=== PATIENT | male | born 1960 | race Caucasian/White ===

== ENCOUNTER 2018-07-24 11:13 | Emergency (ER) | payer OTHER ==
[2018-07-24 11:22] VITALS: BP 167/104
--- NOTE | 2018-07-24 11:52 | UC ---
Ear Complaint HPI - HPI Summary HPI Summary: CHIEF COMPLAINT and HPI: This is a healthy 58-year-old complains of bilateral ear congestion, right ear worse than the left. The patient states that he put Broxson in his right ear and that made it worse. Condition began yesterday. He denies any recent URI. His past medical history includes intermittent bronchitis, but is noncontributory to the present complaint. Is made of an elevated blood pressure of 167/104. The patient says he is on lisinopril but ran out in the last couple of days. Sometimes he has some tinnitus but he denies any neurologic complaints. VITAL SIGNS & SaO2 REVIEWED. Within normal limits unless noted here. 167/104 NURSES NOTE REVIEWED. Pt complains of bilateral clogged ears since 07/23/18. - History of Current Complaint Chief Complaint: UCEar Stated Complaint: ear problems Time Seen by Provider: 07/24/18 11:27 Pain Intensity: 0 - Allergies/Home Medications Allergies/Adverse Reactions: Allergies Allergy/AdvReac Type Severity Reaction Status Date / Time No Known Allergies Allergy Verified 07/24/18 11:19 PMH/Surg Hx/FS Hx/Imm Hx - Additional Past Medical History Additional PMH: PAST MEDICAL HISTORY- ANGINA, INCREASED CHOLESTEROL, HYPERTENSION, CVA, bronchitis CHRONIC and RECURRENT HEALTH PROBLEM LIST REVIEWED. Information relevant to present complaint: Intermittent cough visits VISIT HISTORY REVIEWED. MEDICATIONS & ALLERGIES REVIEWED. She does run out of his antihypertensive medication HYPERTENSION STATUS: Not on antihypertensive medication FAMILY HISTORY:cardiovascular disease Social history: works as a professor at [employer]. He lives with his family. He plays hockey. Nonsmoker. Previously Healthy: Yes - Surgical History Surgical History: Yes Surgery Procedure, Year, and Place: wisdom teeth surgically removed 1990 - Family History Known Family History: Positive: None - Social History Alcohol Use: Occasionally Substance Use Type: None Smoking Status (MU): Never Smoked Tobacco When Did the Patient Quit Smoking/Using Tobacco: 1989 - Immunization History Most Recent Influenza Vaccination: unknown Most Recent Tetanus Shot: 07/16/12 Most Recent Pneumonia Vaccination: never Review of Systems All Other Systems Reviewed And Are Negative: Yes Constitutional: Positive: Negative ENT: Positive: Other - clogged ears. Negative: Epistaxis, Sore Throat, Sinus Congestion, Sinus Pain/Tenderness Respiratory: Positive: Negative. Negative: Shortness Of Breath Cardiovascular: Positive: Negative. Negative: Palpitations Gastrointestinal: Positive: Negative. Negative: Abdominal Pain Is Patient Immunocompromised?: No Physical Exam - Summary Physical Exam Summary: Appearance: The patient is well-appearing, is in no pain or distress, and is well-nourished. Eyes: Conjunctiva are clear. Pupils are equal and reactive to light and accommodation. Extra ocular muscle movement is intact. ENT: The hearing is grossly normal, the pharynx is normal, and the TMs are normal. There is no muffled or hoarse voice. No stridor. The external auditory canal on the right is filled with cerumen. On the left side. He can just see the tympanic membrane, but there is a minimal amount of cerumen. Neck: The neck is supple and there is no lymphadenopathy. Respiratory: The chest is non-tender to palpation and without crepitus. The lungs are clear, there are normal breath sounds, and there is no respiratory distress. No wheezes, rales or rhonchi. Cardiovascular: Heart sounds reveal a regular rate and rhythm. There are no clicks, rubs or murmurs. There are no carotid bruits or thrills. Circulation is grossly intact. Abdomen: The abdomen is soft and nontender. There is no organomegaly. Bowel sounds are present and within normal limits. No point tenderness at McBurneys point. No CVA tenderness. Musculoskeletal: Strength is intact. The patient moves all extremities. Neurological: The patient is alert. Motor and sensory are examination grossly intact. Speech is normal. Psychological: The patient displays age appropriate behavior, and is conversant. GCS=15. Skin: Negative for rashes. Procedure by nurse: Both ears were irrigated. There were good results on the right. The left was less successful, but it was clear to the TM by repeat examination. Patient feels it's easier to hear. Vital Signs: Initial Vital Signs Temp 97.8 F 07/24/18 11:20 Pulse 75 07/24/18 11:20 Resp 20 07/24/18 11:20 BP 167/104 07/24/18 11:20 Pulse Ox 97 07/24/18 11:20 Ear Complaint Course/Dx - Course Course Of Treatment: MEDICAL DECISION MAKING and PLAN: Agent was healthy, complaining of one-day history of bilateral ear congestion, right worse than left. He has a interesting past medical history that includes TIA as well as hypertension. He ran out of blood pressure pills 2 days ago and his pressure is now 167/104. I will give him a prescription for lisinopril. His ears were irrigated with good results. The right ear was worse and is now clear. The patient is more comfortable. I can hear better. My diagnosis is cerumen impaction bilaterally and hypertension MEDICATIONS REVIEWED. HYPERTENSION STATUS REVIEWED WITH PATIENT IF blood pressure is above 120/80. Patient is being treated for hypertension, and will follow up with PMD within 4 weeks. - Differential Dx/Diagnosis Differential Diagnosis/HQI/PQRI: Cerumen Impaction, Otitis Externa, Otitis Media Provider Diagnosis: Cerumen impaction, Hypertension Discharge - Sign-Out/Discharge Documenting (check all that apply): Patient Departure All imaging exams completed and their final reports reviewed: No Studies - Discharge Plan Condition: Stable Disposition: HOME Prescriptions: Lisinopril TAB* [Prinivil TAB 10 MG*] 10 mg PO DAILY #60 tab MDD 10 mg Patient Education Materials: Cerumen Impaction (ED) Referrals: Jacoby Lentz MD [Primary Care Provider] - Additional Instructions: WE DISCUSSED: PLEASE SEEK CARE AT THE EMERGENCY DEPARTMENT IF SYMPTOMS WORSEN OR IF NEW SYMPTOMS DEVELOP. FOLLOW UP WITH YOUR PRIMARY CARE PHYSICIAN IF CONDITION CONTINUES BEYOND 3 DAYS WITHOUT IMPROVEMENT. YOUR DIAGNOSIS IS: WAX IN EARS; REMOVED; HYPERTENSION YOUR PRESCRIPTION RECOMMENDATION IS: LISINOPRIL OTHER INSTRUCTIONS: Hypertension Discharge Instructions: Your blood pressure reading today was 167/104, indicating HYPERTENSION. Follow- up with your primary care provider within 4 weeks for blood pressure check and appropriate recommendations and treatment, as needed. - Billing Disposition and Condition Condition: STABLE Disposition: Home
== END 2018-07-24 12:30 | disposition home or self-care (01) ==
LOC: UCEAST 11:13
DX: H61.23 Impacted cerumen, bilateral (principal); I10 Essential (primary) hypertension
CPT/HCPCS: 99203; G0463

== ENCOUNTER 2023-05-18 05:39 | Observation (INO) ==
[~2023-05-18 05:39] MED LIST: Naloxone 0.4 mg VIAL 0.4 mg/ml 1 ml VIAL IV PRN; Ondansetron 4 mg VIAL 2 MG/ML 2 ml VIAL IV PRN; fentaNYL 100 mcg/2 ml 50 MCG/ML VIAL IV PRN
[2023-05-18] MEDS ORDERED: Chlorhexidine MOUTHWASH 0.12% 15 ML UDC ONE (05:54)
[2023-05-18] MEDS ORDERED: ceFAZolin 2 GM PREMIX 2 GM/50 ML BAG ONE (06:17)
[2023-05-18] MEDS: Lactated Ringers 1000 ml BAG 1,000 ML IV SCH ×2 (06:30→12:47)
[2023-05-18] MEDS: Buffered Lidocaine 1% SYRIN 1 ml INTRADERM ONE (06:30)
[2023-05-18] MEDS ORDERED: Propofol 10 MG/ML 20 ML BTL ONE (07:13)
[2023-05-18] MEDS ORDERED: fentaNYL 250 mcg/5 ml 50 MCG/ML 5 ml VIAL (250 MCG) ONE (07:13)
[2023-05-18] MEDS ORDERED: Midazolam 2 mg/2 ml VIAL 1 mg/ml 2 ml VIAL (2 mg) ONE (07:13)
[2023-05-18] MEDS ORDERED: Lidocaine 2% PF 5 ML VIAL ONE (07:13)
[2023-05-18] MEDS ORDERED: Rocuronium 50 mg VIAL 10 mg/ml 5 ml VIAL (50 mg) ONE ×2 (07:16)
[2023-05-18] MEDS ORDERED: ceFAZolin VIAL VIAL ONE (07:21)
[2023-05-18] MEDS ORDERED: Lidocaine 1% w EPI 1:100,000 MDV 20 ML VIAL ONE (07:21)
[2023-05-18] MEDS ORDERED: Thrombin 5,000 UNITS(BOVINE) for Ultrasound Guided Pseudoaneursym ONE (07:21)
[2023-05-18] MEDS ORDERED: Gelfoam Sponge SIZE 100 SPONGE ONE (07:21)
[2023-05-18] MEDS ORDERED: Dexamethasone IV 4 MG/ML VIAL 1 ml VIAL ONE (07:57)
[2023-05-18] MEDS ORDERED: Ondansetron 4 mg VIAL 2 MG/ML 2 ml VIAL ONE (07:57)
[2023-05-18] MEDS ORDERED: Benzocaine/Menthol LOZ MT PRN (09:24)
[2023-05-18] MEDS ORDERED: Senna TAB 8.6 mg TAB PO PRN (09:24)
[2023-05-18] MEDS ORDERED: Magnesium Hydroxide LIQ 30 ML UDC PO PRN (09:24)
[2023-05-18] MEDS ORDERED: Phenol 1.4% Throat Spray BTL MT PRN (09:24)
[2023-05-18] MEDS ORDERED: Morphine 2 MG/ML SYRINGE IV PRN (09:24)
[2023-05-18] MEDS ORDERED: Ondansetron 4 mg VIAL 2 MG/ML 2 ml VIAL IV PRN (09:24)
[2023-05-18] MEDS ORDERED: Dextran 70/Hypromellose Tears Eye Drops 15 ml BTL (for Artificials Tears) BOTH EYES PRN (09:24)
[2023-05-18] MEDS ORDERED: Calcium Carb (TUMS) 500 mg CHEW TAB PO PRN (09:24)
[2023-05-18 10:07] LABS: Rapid COVID-19 Molecular Undetected (Undetected)
[2023-05-18] MEDS: HYDROcodone/ACETAMIN 5/325 mg TAB PO PRN (17:54)
[2023-05-19 09:27] VITALS: BP 103/55
== END 2023-05-19 09:45 | disposition home or self-care (01) ==
LOC: SSU 05:39 → OR 05:39
PROVIDERS: ADMIT Neurological Surgery; ATTEND Neurological Surgery